=== PATIENT | male | born 1995 | race Caucasian/White ===

== ENCOUNTER 2017-09-19 16:31 | Inpatient (IN) | payer OTHER, MEDICAID ==
[2017-09-19] MEDS ORDERED: ACETAMINOPHEN 325 MG TAB PO PRN (18:45)
[2017-09-19] MEDS ORDERED: BISACODYL 10 MG SUPP PR PRN (18:47)
[2017-09-19] MEDS ORDERED: SENNOSIDES 1 TAB PO PRN (18:47)
--- NOTE | 2017-09-19 19:23 | PDOREHIP ---
Admission [facility] - Admission - 3 Day Assessment Period Admission Date/Day 1: 09/19/17 Day 2: 09/20/17 Day 3: 09/21/17 - Active Diagnoses Comorbidities and Co-existing Conditions at Admission: 73012. None of the Above - Skin Conditions Unhealed Pressure Ulcer (1 or more/Stage 1 or >)-Admission: 0. No
--- NOTE | 2017-09-19 19:23 | PDOREHIP ---
Admission [facility] - Admission - 3 Day Assessment Period Admission Date/Day 1: 09/19/17 Day 2: 09/20/17 Day 3: 09/21/17 - Active Diagnoses Comorbidities and Co-existing Conditions at Admission: 54580. None of the Above - Skin Conditions Unhealed Pressure Ulcer (1 or more/Stage 1 or >)-Admission: 0. No
--- NOTE | 2017-09-19 19:23 | PDOREHIP ---
Admission [facility] - Admission - 3 Day Assessment Period Admission Date/Day 1: 09/19/17 Day 2: 09/20/17 Day 3: 09/21/17 - Active Diagnoses Comorbidities and Co-existing Conditions at Admission: 86140. None of the Above - Skin Conditions Unhealed Pressure Ulcer (1 or more/Stage 1 or >)-Admission: 0. No
[2017-09-19] MEDS ORDERED: SENNOSIDES 17.6 MG/10 ML UDL PO PRN (19:30)
--- NOTE | 2017-09-19 21:19 | GHP ---
[f rep st] HISTORY AND PHYSICAL POST ADMISSION PHYSICIAN EVALUATION AND REHABILITATION TREATMENT PLAN DATE OF ADMISSION: 09/19/2017 DATE OF EVALUATION: 09/19/2017. TIME OF EVALUATION: 1825 hours. REFERRING FACILITY: [facility]. IMPAIRMENT GROUP: 1.9. DATE OF ONSET: 08/27/2017. REFERRING PHYSICIAN: Dr. Morris. CONSULTING PHYSICIANS: Neurology. REHABLITATION DIAGNOSIS: History of stroke, with recurrent debility status post craniectomy flap replacement. ETIOLOGIC DIAGNOSIS: Other, stroke. DATE OF SURGERY: 08/27/2017. 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 He was initially admitted to [facility]. He was eventually discharged to [facility] for rehabilitation, and subsequently was able to return home with his parents. He was readmitted to [facility] on 08/27/2017, for replacement of bone flap. His hospital stay was complicated by an epidural hematoma that required evacuation. He also had myoclonic symptoms that were thought to be a seizure initially but , subsequently, had continuous EEG monitoring with similar episodes of myoclonus in the left leg, but no epileptiform activity on EEG. He had been initially loaded on phenytoin, but he had an adverse reaction per his family of facial swelling and throat closure. He had acute hypoxic respiratory failure, not sure if it was following the phenytoin reaction. He had intubation and he was extubated on 08/31/2017. He was finally medically stabilized and appropriate for inpatient rehabilitation. STUDIES AND LABS: In the hospital: I do not have a comprehensive list. On 09/06/2017, there was a CBC, which showed anemia with a hemoglobin of 9.1 and hematocrit of 26.5. White blood cell count was normal. Platelet count was normal. INR on the day of hospital discharge was 3.6. I do not have any other labs or studies available. PRECAUTIONS: He is a fall risk. He has aspiration precautions. ACTIVE COMORBIDITIES: He has a tier 3 comorbidity of right hemiparesis. He has no other tier 1, tier 2, or tier 3 comorbidities. PAST MEDICAL HISTORY: 1. 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 2. Hypercoagulable state, per mother was diagnosed at [facility] by a nut process helper. She reports that it is a rare condition which skips generations. PAST SURGICAL HISTORY: He had a craniectomy following his seizure. PREHOSPITAL MEDICATIONS: I do not have a list. ADMISSION MEDICATIONS: 1. Acetaminophen 325 to 650 mg p.o. q.6 hours p.r.n. 2. Aspirin 81 mg p.o. daily. 3. Atorvastatin 10 mg p.o. q.h.s. 4. Cholecalciferol 2000 units p.o. daily. 5. Fluoxetine 40 mg p.o. daily. 6. Gabapentin 600 mg p.o. t.i.d. 7. Methylphenidate 5 mg p.o. b.i.d. at 0700 hours and noon. 8. Omeprazole 20 mg p.o. daily. 9. Warfarin 5 mg p.o. q. Friday, Friday, Friday, and , and 7.5 mg p.o. q. Friday and Friday. ALLERGIES: Phenytoin. FAMILY HISTORY: Noncontributory. Mother denies any history of clotting disorders that she knows of. 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 He was living with his family. Subsequently, he had a prolonged course of hospitalization, rehabilitation, and then returned home. The home is fully ADA compliant with grab-bars and a portable shower. Per family, he was able to ambulate a few steps to make transfers, for instance, from wheelchair to commode. He had some verbal communication. He is a nonsmoker and nondrinker. REVIEW OF SYSTEMS: Very limited. He complains of some pain when the nurse shows him the Bake-Hobson faces scale at a level 3, but he does not indicate where he might be hurting. Family reports that he had a bowel movement during the drive and completed the bowel movement on the commode once he arrived on the rehabilitation unit. Per family, he is quite fatigued from the drive, and as per family, he has been able to feed himself with his left upper extremity. PHYSICAL EXAMINATION: VITAL SIGNS: Blood pressure is 132/96, heart rate is 91 , respiratory rate is 18, oxygen saturation is 93% on room air. Temperature is 38.2, and a subsequent temperature is 38.0. GENERAL: This is a well-nourished , well-developed man, appears his chronologic age, cooperative, and in no distress. HEENT: Extraocular movements are intact. Pupils are equal, round, reactive to light. He is not compliant with opening his mouth for an oral exam. NECK: Supple. HEART: Regular rate and rhythm. No murmurs, rubs, or gallops. LUNGS: He has upper respiratory rhonchi with exhalation. Otherwise, lungs are clear to auscultation bilaterally without wheezes, rhonchi, or rales. ABDOMEN: Soft, nontender, nondistended, with normoactive bowel sounds. EXTREMITIES: There is no cyanosis, clubbing, or edema. Radial and dorsalis pedis pulses are 2+ bilaterally. NEUROLOGIC: He is alert. He is moderately responsive to commands. For instance, he participates in arising to seated from supine for the lung exam. He is cooperative with the nurse in gesturing at the Wilhelm-Hobson faces pain scale. However, he often is not responding to commands. He appears to be able to move his left upper extremity in all planes spontaneously. Cranial nerves 2-12 are grossly intact, though as previously, he was not cooperative with an oral exam. He has rigidity of the right upper and lower extremities. His right upper extremity is held tonically at about 90 degrees of flexion at the elbow. He has extension contractures bilaterally at the ankles. He has mild laxity/rigidity of the left upper extremity. There is no rigidity of the left lower extremity. Deep tendon reflexes are 4+ with clonus at the left patella and Achilles tendon, and are 2+ at the right patellar and Achilles tendon. Sensory exam could not be accomplished, as he was not responding. SKIN: He has a well-healed incision over the right parietal to occipital region. CURRENT LEVEL OF FUNCTION: Per the preadmission screen, regarding diet, feeding , and swallowing, he was on a dysphagia 1 diet with 1-1 supervision and it was noted that he had a delayed swallow trigger, but a strong swallow after a bolus hold of 2-3 minutes. At times, he required suctioning of secretions. Grooming , he required assistance. Bathing, he required assistance. Dressing required maximal assistance. Toileting required assistance. Bed mobility required maximal assistance of 2, but on today's exam, he needed moderate assistance of 1 to 2 to arise from seated from supine. Transfers required moderate assistance of 2 for stand, pivot, transfer. He used a wheelchair and a standing frame. For balance, he required [id number] assistance seated , or as good as standby assist for short periods of time. Endurance was fair. In a wheelchair, he was able to propel 50 feet with moderate assistance using the left lower extremity with maximal voice cues. Regarding communication, he was nonverbal. He would shake his head yes or no to answer questions. Mother reported history of expressive aphasia at baseline, but able to comprehend and follow commands. Regarding cognition, he was able to follow 1-step commands. IMPRESSION: This is a 22-year-old man, with a history of a large left hemispheric stroke, with expressive aphasia, and right hemiplegia, who returns to [facility] for replacement of a craniectomy flap. He had a complicated hospital course, including epidural hematoma that required evacuation. There was a right lower extremity myoclonus, but seizure was ruled out. In the meantime, there was adverse reaction to phenytoin. Also, during his hospital course, he had hypoxic respiratory arrest, and it is unknown whether or not there may have been a cerebral hypoxic ischemic insult. He likely has a hypercoagulable state, though records are not available, and is on warfarin, as well as aspirin. He has hypertension and is on metoprolol, and he has secondary prophylaxis for stroke with atorvastatin. He has much increased debility compared to his baseline state, in which he was much more independent in terms of mobility, and was able to communicate with his family. He is appropriate for inpatient rehabilitation, where he will benefit from physical and occupational therapy, to optimize mobility and activities of daily living, and from speech and language pathology regarding swallowing and communication/ cognition. His goal is to complete a rehabilitation stay and then return home with his family and home health care. For a safe discharge, it is anticipated that he will be able to tolerate the least restrictive diet. He will be able to follow 8-ve-dltr-step commands. He will achieve modified independence with eating and grooming. It is likely he will require standby assist and equipment for bed mobility, transfers and dressing. He will be able to propel his wheelchair with standby assist and negotiate a wheelchair ramp safely. He will likely continue to require assistance with bathing with a portable shower, and he will require assistance for household management and meal preparation. He will have therapy with physical therapy, occupational therapy, and speech and language pathology for 30-60 minutes per day per discipline, on a modified schedule of 5-7 days per week. His expected duration of stay is 14-21 days. It is anticipated that upon discharge, he will continue to benefit from home health services, including nursing, speech and language pathology, an aide occupational therapy, PT, and a stroke support group. PLAN: 1. Debility, status post surgical replacement of craniectomy flap and complicated hospital course. PT and OT to optimize mobility and ADLs. 2. Dysphagia. Per review of speech therapy note from 09/18/2017, he was cleared for regular texture and thin liquids; however, per the preadmission screen, he was on a pureed diet with no mention of liquid thickness. He will have aspiration precautions and be continued on a pureed diet with thin liquids , until assessment by Speech and Language Pathology. 3. Expressive aphasia and unclear cognitive status to be assessed further per Speech and Language Pathology. 4. Hypercoagulable state. Would like to see the records from Hematology at [facility] to understand the diagnosis better. We will continue warfarin. He had an elevated INR this morning. We will repeat INR tomorrow morning, and will have further warfarin management per the pharmacy. Continue aspirin. 5. Hypertension. Continue metoprolol 25 mg b.i.d. 6. Anemia in the hospital, and the patient on warfarin and aspirin, will check a CBC in the morning. 7. History of impaired alertness, likely due to CVA. Continue methylphenidate. 8. Spasticity. Continue gabapentin. 9. Question of seizure in the hospital. Per hospital notes, it was recommended that he continue levetiracetam. However, his mother refused to allow that, and insisted on only gabapentin as an anticonvulsant, given that he had continuous EEG monitoring with episodes of myoclonus on the right lower extremity, but no epileptiform EEG activity. I am comfortable with not continuing an anticonvulsant and with not having seizure precautions. He will be observed, and if his symptoms are distinctly different than what has been reported out of the hospital, consider seizure precautions and consider further discussion with the mother regarding anticonvulsant medication. 10. Obesity, will have a dietitian consult to optimize his nutrition and stabilize his weight. 11. Followup. I have no information regarding what followup he should have with the surgical service or Neurology. This will need to be determined subsequently during his stay at inpatient rehabilitation. /[id number]/MODL MTDD
[2017-09-19] MEDS: GABAPENTIN 250 MG/5 ML 30 ML BOTTLE PO SCH (22:04)
[2017-09-19] MEDS: METOPROLOL TARTRATE 25 MG TAB PO SCH (22:04)
[2017-09-19] MEDS: ATORVASTATIN CALCIUM 10 MG TAB PO SCH (22:04)
[2017-09-20] MEDS: LANSOPRAZOLE SUSP 30MG/10ML UDSYR (Adult) PO SCH (10:44)
[2017-09-20] MEDS: METOPROLOL TARTRATE 25 MG TAB PO SCH ×2 (10:45→22:35)
[2017-09-20] MEDS: CHOLECALCIFEROL VIT D3 2,000 UNITS TAB/CAP PO SCH (10:45)
[2017-09-20] MEDS: FLUoxetine 20 MG CAP PO SCH (10:45)
[2017-09-20] MEDS: ASPIRIN 81 MG CHEWABLE TAB PO SCH (10:46)
[2017-09-20] MEDS: GABAPENTIN 250 MG/5 ML 30 ML BOTTLE PO SCH ×3 (10:46→22:35)
[2017-09-20 12:16] LABS: PLATELET COUNT 513 10^3/uL (150-400)
[2017-09-20 12:24] LABS: INR 2.19 (0.83-1.16); PROTIME(PATIENT) 24.5 SEC (12.0-15.0)
--- NOTE | 2017-09-20 14:45 | SOAPPROG ---
SOAP Progress Note Assessment/Plan: Assessment: * debility secondary to large left MCA and DAMIEN CVA * Receiving therapy * low-grade fever/mild tachycardia * Suspicious for pneumonia with abnormal lung exam * CBC does not show leukocytosis but platelets are up * Awaiting chest x-ray * He is most likely at high risk for aspiration pneumonia * dysphagia * expressive aphasia * hypercoagulable state * Continue warfarin. INR therapeutic * hypertension * anemia * Does have microcytosis * Will check iron studies * spasticity * seizure versus myoclonus * On gabapentin *? GI prophylaxis * Most likely Prevacid is carry over from ICU * Consider weaning off Subjective: Little bit more lethargic this morning. Did have low-grade fever and heart rate is up a little bit Objective: Vital Signs Temp Pulse Resp BP Pulse Ox 38.1 C 101 H 20 147/105 H 92 09/20/17 10:42 09/20/17 10:45 09/20/17 10:42 09/20/17 10:45 09/20/17 10:42 Laboratory Results 09/20/17 10:05 09/20/17 10:05 09/19/17 09/20/17 09/21/17 05:59 05:59 05:59 Intake Total 100 118 Balance 100 118 PT 24.5 SEC (12.0-15.0) H 09/20/17 10:05 INR 2.19 (0.83-1.16) H 09/20/17 10:05 Physical Exam - Physical Exam General Appearance: WD/WN Respiratory: other (crackles especially in the right upper lobe versus coarse breath sounds), No respiratory distress Cardiac/Chest: regular rate, rhythm, No edema Abdomen: normal bowel sounds, non-tender, soft Neuro/Psych: alert, aphasia, motor weakness ICD10 Worksheet Patient Problems: Problems Problem Status Onset stroke Acute
[2017-09-20] MEDS ORDERED: WARFARIN SODIUM 5 MG TAB PO SCH (16:00)
[2017-09-20] MEDS ORDERED: NS BOLUS 500 ML (Wide open) IV ONE (20:30)
[2017-09-20] MEDS: ATORVASTATIN CALCIUM 10 MG TAB PO SCH (21:42)
[2017-09-20] MEDS: D5W 1/2 NS W/ 20 KCl/L 1,000 ML IV SCH (21:53)
[2017-09-20] MEDS ORDERED: HYDROmorphONE/DILAUDID 2 MG/ML INJ IVP ONE (22:30)
[2017-09-20] MEDS ORDERED: HYDROmorphONE/DILAUDID 2 MG/ML INJ ONE (22:42)
[2017-09-20] MEDS: NYSTATIN SUSP 500000 UNIT/5 ML UDCUP PO SCH (22:43)
[2017-09-20] MEDS ORDERED: ACETAMINOPHEN 650 MG SUPP PR PRN (23:48)
[2017-09-21] MEDS: HYDROmorphONE/DILAUDID 2 MG/ML INJ IVP PRN ×2 (03:21→12:03)
[2017-09-21] MEDS: D5W 1/2 NS W/ 20 KCl/L 1,000 ML IV SCH (09:11)
[2017-09-21] MEDS: NYSTATIN SUSP 500000 UNIT/5 ML UDCUP PO SCH ×2 (09:11→12:03)
[2017-09-21] MEDS: LANSOPRAZOLE SUSP 30MG/10ML UDSYR (Adult) PO SCH (09:12)
[2017-09-21] MEDS: FLUoxetine 20 MG CAP PO SCH (09:12)
[2017-09-21] MEDS: METOPROLOL TARTRATE 25 MG TAB PO SCH (09:12)
[2017-09-21] MEDS: CHOLECALCIFEROL VIT D3 2,000 UNITS TAB/CAP PO SCH (09:12)
[2017-09-21] MEDS: ASPIRIN 81 MG CHEWABLE TAB PO SCH (09:12)
[2017-09-21] MEDS: GABAPENTIN 250 MG/5 ML 30 ML BOTTLE PO SCH (09:12)
[2017-09-21 10:52] VITALS: RESP 18
--- NOTE | 2017-09-21 11:04 | SOAPPROG ---
SOAP Progress Note Assessment/Plan: Assessment: 22-year-old who sustained a large left stroke in April requiring bone flap removal. Bone flap was replaced in August but hospital course was complicated by epidural hematoma and anaphylactic reaction to Dilantin requiring intubation. He was admitted to rehab on September 19 and has been having low-grade fevers since with some decrease in mental status * low-grade fever/mild tachycardia * Chest x-ray is negative * CBC does not show leukocytosis but platelets are up * Discussed the case with Infectious Disease. They feel that MRI is the best initial test to look for fluid collections or possible osteomyelitis as a result of recent surgery. LP would also be a consideration. * We will transfer to [facility] to get the above done and for infectious disease consultation * dysphagia * Due to decreased mental status he is now NPO per speech * Will probably need NG tube a Dobhoff for medications * expressive aphasia * hypercoagulable state * Hold warfarin * Will need bridging at hospital * hypertension * anemia * Does have element of iron deficiency * spasticity * seizure versus myoclonus * On gabapentin *? GI prophylaxis * Most likely Prevacid is carry over from ICU * Consider weaning off 09/21/17 11:01 Subjective: Maybe a little bit more awake this morning. Still with low-grade fevers Objective: Vital Signs Temp Pulse Resp BP Pulse Ox 38.1 C 127 H 18 156/102 H 90 L 09/21/17 10:51 09/21/17 10:51 09/21/17 10:51 09/21/17 10:51 09/21/17 10:51 Laboratory Results 09/20/17 10:05 09/20/17 10:05 09/20/17 09/21/17 09/22/17 05:59 05:59 05:59 Intake Total 100 1303 Balance 100 1303 PT 24.5 SEC (12.0-15.0) H 09/20/17 10:05 INR 2.19 (0.83-1.16) H 09/20/17 10:05 Physical Exam - Physical Exam General Appearance: no apparent distress EENT: normal ENT inspection Respiratory: other (Coarse breath sounds bilaterally) Cardiac/Chest: regular rate, rhythm, No edema Abdomen: normal bowel sounds, non-tender, soft Skin: normal color Neuro/Psych: other (Awake. Does respond to commands. Nonverbal) ICD10 Worksheet Patient Problems: Problems Problem Status Onset stroke Acute
[2017-09-21 12:27] VITALS: BP 127/91; PULSE 102; TEMP 101.2; O2SAT 92
[2017-09-23] MEDS ORDERED: WARFARIN SODIUM 7.5 MG TAB PO SCH (16:00)
== END 2017-09-21 12:30 | disposition short-term general hospital (02) | DRG 949 ==
LOC: BREH 17:30
PROVIDERS: ADMIT Internal Medicine; ATTEND Internal Medicine
PROC: F0636ZZ Communicative/Cognitive Integration Skills Treatment of Neurological System - Whole Body (ICD-10-PCS; principal; 2017-09-19)
PROC: F08Z7ZZ Vocational Activities and Functional Community or Work Reintegration Skills Treatment (ICD-10-PCS; principal; 2017-09-19)
PROC: F07M3ZZ Motor Function Treatment of Musculoskeletal System - Whole Body (ICD-10-PCS; principal; 2017-09-19)
CPT/HCPCS: 92610-GN; 97167-GO; 97535-GO; J1170

== ENCOUNTER 2017-09-21 10:56 | Inpatient (IN) | payer OTHER, MEDICAID ==
[2017-09-21 13:18] VITALS: TEMP 101
[2017-09-21] MEDS ORDERED: GADOBUTROL 10 ML VIAL IVP ONE (13:37)
[2017-09-21] MEDS ORDERED: ACETAMINOPHEN 650 MG SUPP PR PRN (13:46)
[2017-09-21] MEDS ORDERED: ONDANSETRON 4 MG/2 ML VIAL IVP PRN (13:46)
[2017-09-21] MEDS ORDERED: LORazepam 2 MG/ML INJ IVP PRN (13:46)
[2017-09-21] MEDS ORDERED: HYDROmorphONE/DILAUDID 1 MG/ML INJ IVP PRN (13:46)
[2017-09-21] MEDS ORDERED: HYDROmorphone HCL/NS/PF 0.4 MG/2 ML SYR IVP PRN (13:53)
[2017-09-21] MEDS ORDERED: NS 1,000 ML IV SCH (14:00)
--- NOTE | 2017-09-21 14:56 | GHP ---
[f rep st] HISTORY AND PHYSICAL DATE OF ADMISSION: 09/21/2017 CHIEF COMPLAINT: Fever and somnolence. 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 He had subsequent expressive aphasia and right-sided hemiplegia. He was initially admitted and treated at [facility] for his stroke. This was thought to be due to a hypercoagulable state and he was seen by marketing production coordinator at [facility], where he went for rehab. However, the details of this are unclear. He has been maintained on Coumadin and aspirin with a therapeutic INR yesterday at 2.19. He was able to go home with his parents after a course at the [facility] for rehab. He was then readmitted to [facility] August 27, where he had a bone flap replaced. This was complicated by an epidural hematoma which required evacuation. Prior to the surgical evacuation of the hematoma, he apparently did have some seizure activity and was started on Dilantin. Postoperatively, he continued to have some myoclonic jerking symptoms, but underwent continuous EEG monitoring and no abnormal epileptiform signals were detected. He, unfortunately, developed anaphylactic-type symptoms from the phenytoin, which led to acute respiratory failure and a code blue event , during which he was intubated. He was extubated 4 days later. His parents report that since his recent bone flap surgery, he has not recovered. He was, at some point, able to take a pureed diet with thin liquids. However, since he was transferred to rehab at [facility] 2 days ago, he has been n.p.o. They have noted increasing somnolence. His parents stated he started having fevers 2 weeks ago, but when fevers were noted at the rehab facility he was transferred to [facility] for direct admission and further evaluation. There have reportedly been no jerking movements consistent with seizure activity and he is currently not on antiepileptics. Prior to his somnolent state, he denied any headaches, neck pain, chest pain, shortness of breath, or abdominal symptoms. His last bowel movement was 2 days ago. He has had no diarrhea. There have been no reports of dysuria. Upon my exam, the patient is somnolent and only responsive to deep sternal rub. He is admitted to the hospital for further evaluation of his fever and somnolence. History is obtained from chart review and lengthy conversation with his parents as the patient is somnolent and unable to answer questions. PAST MEDICAL HISTORY: 1. History of large left hemispheric CVA involving the MCA and DAMIEN of April 2017 , requiring craniectomy secondary to edema. 2. Hypertension, managed on metoprolol. 3. Dysphagia, currently n.p.o. for the past 2 days. 4. Hypercoagulable state of unknown etiology. 5. Chronic anticoagulation with a therapeutic INR. 6. 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 PAST SURGICAL HISTORY: 1. Left craniectomy April of 2017 at [facility]. 2. Bone flap replacement August 27, 2017, at [facility]. MEDICATIONS: Please see [employer] for complete updated outpatient medication list. ALLERGIES: Phenytoin. FAMILY HISTORY: Negative for hypercoagulable disorders. SOCIAL HISTORY: The patient previously worked in the [employer] business and was living with his parents. His parents deny that he is a smoker or a drinker. There is no history of illicit drug use. REVIEW OF SYSTEMS: A 10-point review of systems was performed and is negative except as per HPI. However, review of systems is generally limited given the patient's somnolent status and inability to interact. OBJECTIVE: VITAL SIGNS: Temperature is 38.3, blood pressure 138/85, heart rate 92, respiratory rate 18, he is 98% on 3 L of oxygen by nasal cannula. GENERAL: The patient is somnolent with a Karena Coma Scale of 7. HEENT: His head reveals a well-healed craniectomy incision without erythema or obvious deformity. Pupils: His right pupil has a lateral upper deviated gaze. His pupils are 3 mm and minimally reactive to light. Oropharynx reveals a white thickening of the tongue with significant posterior oropharynx secretions that he seems unable to manage. Passive flexion of his neck reveals some rigidity. HEART: Regular rate and rhythm without murmur. LUNGS: Reveal decreased air movement. ABDOMEN: Soft, obese, nondistended, nontender, with normoactive bowel tones. EXTREMITIES: Lower extremities are without cyanosis, clubbing, or edema. His right upper extremity has a chronic flexure of the hand, consistent with his baseline spasticity. I am unable to test strength given his somnolence. NEUROLOGIC: As above, there is a right pupil deviation with a lateral upper gaze. Medora Coma Scale of 7. LABORATORY DATA: CBC, PT/INR, complete metabolic panel, procalcitonin, lactic acid, TSH, urinalysis, urine culture and blood cultures are all sent and currently pending. MRI of the brain and a chest x-ray are ordered and also pending. ASSESSMENT AND PLAN: The patient is a 22-year-old male with a history of a large left hemispheric stroke and subsequent expressive aphasia and right hemiplegia, who is status post craniectomy with bone flap replacement in August of 2017, presents to the hospital from a rehab facility with fever and somnolence. 1. Acute encephalopathy. A central nervous system source (infection or seizure ) is at the top of the differential given his recent bone flap replacement and neurologic changes, along with fever. MRI with and without contrast is ordered to evaluate for infection, edema or intracranial abnormalities. Infectious Disease is consulted. Labs are sent as above. He may need a lumbar puncture and this would require reversal of his INR. I will discuss this with Infectious Disease. I do not see he has been given any medications recently that would contribute to his somnolence. Neurology consult is requested. Will involve neurosurgery once MRI results available. 2. Fever. As above, this may be central versus an infectious process. We will start with a CBC, chem panel, lactic acid, procalcitonin, chest x-ray, urinalysis, respiratory pathogen panel and MRI as above. Likely to proceed with lumbar puncture if no source of fever found on MRI. 3. History of large left middle cerebral artery and anterior cerebral artery cerebrovascular accident. Thought secondary to a hypercoagulable state. Patient has been on aspirin, Coumadin, and statin. I will hold his Coumadin for now until it is determined if he will undergo lumbar puncture. If that is the case, INR will need to be reversed. We will aim to continue his aspirin, statin. Physical therapy and occupational therapy consults are requested. 4. Spasticity secondary to his cerebrovascular accident. We will continue his gabapentin. 5. Dysphagia. The patient is not safe for p.o. intake and will be made n.p.o. at this time. Speech consult is requested. He has been 2 days without nutrition. We will need to consider placement of a nasogastric tube for medication administration and possibly tube feeds if he is not able to take p.o. in the next couple of days. 6. History of hypertension. He is normotensive on arrival. Per previous records, it sounds like he has been managed on metoprolol, but I do not see that on his active medication list. 7. Deep venous thrombosis prophylaxis. We will place sequential compression devices for now. He is currently anticoagulated, though we may need to consider reversal if we pursue lumbar puncture. 8. Code status. Patient is full code. 9. Disposition. Patient is admitted to inpatient status. I anticipate he will require greater than 48 hours hospitalization for ongoing evaluation of his fevers and acute encephalopathy. /[id number]/MODL MTDD
[2017-09-21 15:00] LABS: PLATELET COUNT 473 10^3/uL (150-400)
[2017-09-21] MEDS ORDERED: BISACODYL 10 MG SUPP PR PRN (15:07)
[2017-09-21 15:08] LABS: INR 2.36 (0.83-1.16)
[2017-09-21] MEDS ORDERED: METOPROLOL TARTRATE 5 MG/5 ML INJ IVP PRN (16:05)
[2017-09-21] MEDS ORDERED: levETIRAcetam 1,000 MG in NS 100 ML IV ONE (16:21)
--- NOTE | 2017-09-21 16:24 | PDMN ---
Medical Necessity Medical necessity: C/M review: Patient meets [place] criteria [place] [facility] [place] Sepsis and Other Febrile Illness, without Focal Infection; Acute and persistent encephalopathy, fevers of unclear etiology, 38.3 T max since arrival to SDU, INR 2.36 requiring IV Vitamin K x 1, planned 09/22/2017 lumbar puncture, Infectious disease consult, Neurology consult, ongoing NPO, IV fluids, acute inpt PT/OT/ST in SDU, comorbid [facility] Acute Inpt Rehab admission 09/19/2017-2016, hx large hemispheric CVA involving left MCA / DAMIEN, post CVA spasticity, dysphagia, expressive aphasia, hypercoagulable state, hypertension. MD anticipates > 2 MN LOS for eval and TX of of above.
--- NOTE | 2017-09-21 16:24 | PDMN ---
Medical Necessity Medical necessity: C/M review: Patient [place] criteria [place] [facility] [place] Sepsis and Other Febrile Illness, without Focal Infection; Acute and persistent encephalopathy, fevers of unclear etiology, 38.3 T max since arrival to SDU, INR 2.36 requiring IV Vitamin K x 1, planned 09/22/2017 lumbar puncture, Infectious disease consult, Neurology consult, ongoing NPO, IV fluids, acute inpt PT/OT/ST in SDU, comorbid [facility] Acute Inpt Rehab admission 09/19/2017-2016, hx large hemispheric CVA involving left MCA / DAMIEN, post CVA spasticity, dysphagia, expressive aphasia, hypercoagulable state, hypertension. MD anticipates > 2 MN LOS for eval and TX of of above.
--- NOTE | 2017-09-21 16:24 | PDMN ---
Medical Necessity Medical necessity: C/M review: Patient meets INPT criteria under [facility] M-160 Sepsis and Other Febrile Illness, without Focal Infection; Acute and persistent encephalopathy, fevers of unclear etiology, 38.3 T max since arrival to SDU, INR 2.36 requiring IV Vitamin K x 1, planned 09/22/2017 lumbar puncture, Infectious disease consult, Neurology consult, ongoing NPO, IV fluids, acute inpt PT/OT/ST in SDU, comorbid [facility] Acute Inpt Rehab admission 09/19/2017-2016, hx large hemispheric CVA involving left MCA / DAMIEN, post CVA spasticity, dysphagia, expressive aphasia, hypercoagulable state, hypertension. MD anticipates > 2 MN LOS for eval and TX of of above.
--- NOTE | 2017-09-21 16:26 | GCON ---
[f rep st] CONSULTATION INSURANCE INVESTIGATOR CONSULTATION REASON FOR ADMISSION: Acute encephalopathy. HISTORY OF PRESENT ILLNESS: The patient is a 22-year-old white male with extensive past medical hist ory, including a large left hemispheric stroke involving MCA and DAMIEN in April of 2017. This required a craniectomy. He also has a history of hypertension, dysphagia, spasticity, and hypercoagulable sta te. He was admitted over to rehab when began having altered mental status and increased somnolence. Currently, the patient is unable to provide any history. All history is gleaned from the medical re cord. He apparently was not complaining of anything prior to his somnolence. PAST MEDICAL HISTORY: Significant for a large left hemispheric stroke, hypertension, hypercoagulable state of unknown etiology, spasticity, dysphagia. ALLERGIES: Phenytoin. PAST SURGICAL HISTORY: He has had a craniectomy and a bone flap replacement. SOCIAL HISTORY: No history of tobacco use. No history of alcohol use. Previously was living with nupur alonzo, involved in the [employer] business. PHYSICAL EXAM: VITAL SIGNS: Blood pressure is 138/85, pulse 92, respiration 18, temperature 38.3, o xygen saturation 98% on 3 L. GENERAL: He is a well-developed, well-nourished, 22-year-old white mal e, who is somnolent, but appears to be resting comfortably. HEENT: Eyes are PERRLA, EOMI. Throat i s clear. NECK: Supple. There is no cervical adenopathy. HEART: Regular rate and rhythm without m urmurs, rubs, gallops. LUNGS: Clear to auscultation. No wheeze or rhonchi. ABDOMEN: Soft, nonten stephan. Bowel sounds are present. EXTREMITIES: No clubbing, cyanosis, or edema. LABORATORIES: White count 6.9, hemoglobin 10, hematocrit 32, platelet count is 473. INR is 2.36. U rinalysis pH is 5, specific gravity 1.024. 50 to 182 RBCs, otherwise, negative. Chest x-ray shows a hint of a retrocardiac infiltrate on the left. Brain MRI is currently pending. IMPRESSION: 1. Acute encephalopathy, the etiology of which is unclear at this time. MRI results are currently p ending. Must take into consideration possible pneumonia. 2. Fevers. Again, etiology which is unclear. 3. History of a large stroke. 4. Hypercoagulable state. 5. Dysphagia. 6. Hypertension. RECOMMENDATIONS: 1. Agree with infectious disease consult. 2. Consider lumbar puncture. 3. Await for MRI results. 4. Procalcitonin is pending. 5. Continue current anticoagulation. 6. PT and OT. /[id number]/MODL
[2017-09-21] MEDS: PHYTONADIONE 5 MG in NS 50 ML IV ONE ×2 (16:46→18:38)
--- NOTE | 2017-09-21 17:25 | ASMTCMCOM ---
CM Note CM Note Notes: 22 year old male with a hx of a large stroke in april requiring a crani, HTN, Dysphasia, spasticity, hypercoagulable state, bone flap replacement. He came from [facility] in-pT rehab due to increased somnolence. Hospitalist would like to transfer him to [facility]. Records copied and sent w/[facility]. Date Signed: 09/21/2017 05:25 PM Electronically Signed By:Oralia Hewitt LCSW
--- NOTE | 2017-09-21 17:25 | ASMTCMCOM ---
CM Note CM Note Notes: 22 year old male with a hx of a large stroke in april requiring a crani, HTN, Dysphasia, spasticity, hypercoagulable state, bone flap replacement. He came from [facility] in-pT rehab due to increased somnolence. Hospitalist would like to transfer him to [facility]. Records copied and sent w/[facility]. Date Signed: 09/21/2017 05:25 PM Electronically Signed By:Oralia Hewitt LCSW
--- NOTE | 2017-09-21 17:25 | ASMTCMCOM ---
CM Note CM Note Notes: 22 year old male with a hx of a large stroke in april requiring a crani, HTN, Dysphasia, spasticity, hypercoagulable state, bone flap replacement. He came from [facility] in-pT rehab due to increased somnolence. Hospitalist would like to transfer him to [facility]. Records copied and sent w/[facility]. Date Signed: 09/21/2017 05:25 PM Electronically Signed By:Oralia Hewitt LCSW
[2017-09-21 18:17] VITALS: BP 151/95; PULSE 127; RESP 16; O2SAT 98
--- NOTE | 2017-09-21 18:52 | GDS ---
[f rep st] DISCHARGE SUMMARY DISCHARGE DIAGNOSES: 1. Acute encephalopathy, possibly secondary to seizure versus infection. 2. Fever of unclear etiology. 3. 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 4. Chronic anticoagulation, with an INR of 2.36 on Coumadin. 5. 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 6. Dysphagia. 7. History of hypertension, managed on metoprolol. IMAGING STUDIES AND PROCEDURES: 1. MRI performed on admission revealed a large area cephalocaudal malacia developing in the left omrhtaci-soopaevl-btpowtyac region associated with compensatory enlargement of the left lateral ventricle. The overlying dura was smoothly thickened and was beneath a large bone flap, which remains in anatomic alignment. There was some subtle curvilinear enhancement within the area of encephalomalacia, representing a remnant of patent vascular structures within the area of brain. There was no evidence of brain parenchymal, subdural, or epidural abscess. There was no evidence for scalp abscess. The bone flare has increased signal throughout, but no enhancement. There was no change in ventricular size since September 10. There was no evidence for abnormal subependymal enhancement. The paranasal and mastoid sinuses were free of fluid. Diffusion images of the brain were normal. Overall, no abscess or infectious source for fever was identified. 2. A portable chest x-ray showed some possible vascular crowding in the left lung retrocardiac base, though no obvious infiltrate or consolidation. HISTORY OF PRESENT ILLNESS: Please see the dictated history and physical dated September 21, 2017. In brief, the patient is a 22-year-old male with history of left MCA and DAMIEN strokes, which occurred in April of 2017, requiring craniectomy. He was then re-admitted to the hospital in early August for bone flap replacement, which was complicated by an epidural hematoma and seizure activity. He had been treated with Dilantin and Keppra, but the Dilantin was discontinued due to a hypersensitivity reaction, possibly anaphylaxis versus DRESS syndrome. He required intubation at that time with a code blue event and was extubated 4 days later. He then was transferred to rehab. Two days into his rehab course in [place], he was sent to the hospital for somnolence and fever, for further evaluation. HOSPITAL COURSE: The patient was initially admitted to medical-surgical floor. Upon my evaluation, he was unresponsive with a Huntington coma score of 7 and was thus transferred to the ICU. He had a right eye superolateral gaze deviation, which was concerning for an absence seizure. His mentation slightly improved after transfer to the ICU, but he continued to have waxing and waning symptoms of detachment, with right eye lateral gaze deviation. His infection workup revealed a normal white blood cell count of 7. Procalcitonin was negative at 0.05. Lactic acid was 0.8. Urinalysis was negative. Chest x-ray was not convincing for pneumonia. As above, his MRI did not suggest a [employer] source of infection. Lumbar puncture was considered. However, it is noted the patient is very high risk to reverse his anticoagulation given his history of hypercoagulable state with a devastating stroke. I discussed the case with Dr. Sal Mancera from Neurosurgery and with Dr. Benavidez from Neurology, who were both concerned for possible seizure activity and suggested the patient needs EEG monitoring, which is unavailable at our hospital. At this point, we will defer the lumbar puncture until he has seizure ruled out as a source of his unresponsive episodes. He will be transferred to the [facility] for EEG monitoring. I urged the family to consider transfer back to [facility], where he has been cared for previously. However, they refused to go back to [facility]. If his EEG is negative for seizure, then he will likely warrant lumbar puncture if fevers and somnolence persist. He was loaded with 1 g of IV Keppra at 1645 hours. No Dilantin is recommended given a history of severe hypersensitivity reaction (? DRESS vs anaphylaxis) requiring intubation. He has, otherwise, been kept n.p.o. Given his somnolent state, I do not feel he is safe for p.o. intake at this time. He will need speech and swallow evaluations. At the time of transfer, his vital signs are stable. I discussed the case with Dr. Chaidez, the medical ICU geodesy teacher at the [facility], who accepts the patient in transfer. DISPOSITION: The patient is discharged to the [facility] medical ICU by advanced life support in stable condition. A total of 90 minutes was spent providing critical care on admission, reviewing chart and discussing case with specialty care. Another 25 minutes were spent discussing goals of care and transfer of care to a facility capable of EEG monitoring. Parents agreed to transfer. /[id number]/MODL MTDD
--- NOTE | 2017-09-21 18:52 | GDS ---
[f rep st] DISCHARGE SUMMARY DISCHARGE DIAGNOSES: 1. Acute encephalopathy, possibly secondary to seizure versus infection. 2. Fever of unclear etiology. 3. 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 4. Chronic anticoagulation, with an INR of 2.36 on Coumadin. 5. 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 6. Dysphagia. 7. History of hypertension, managed on metoprolol. IMAGING STUDIES AND PROCEDURES: 1. MRI performed on admission revealed a large area cephalocaudal malacia developing in the left swolkamh-brbdcffw-qjgzqqjnh region associated with compensatory enlargement of the left lateral ventricle. The overlying dura was smoothly thickened and was beneath a large bone flap, which remains in anatomic alignment. There was some subtle curvilinear enhancement within the area of encephalomalacia, representing a remnant of patent vascular structures within the area of brain. There was no evidence of brain parenchymal, subdural, or epidural abscess. There was no evidence for scalp abscess. The bone flare has increased signal throughout, but no enhancement. There was no change in ventricular size since September 10. There was no evidence for abnormal subependymal enhancement. The paranasal and mastoid sinuses were free of fluid. Diffusion images of the brain were normal. Overall, no abscess or infectious source for fever was identified. 2. A portable chest x-ray showed some possible vascular crowding in the left lung retrocardiac base, though no obvious infiltrate or consolidation. HISTORY OF PRESENT ILLNESS: Please see the dictated history and physical dated September 21, 2017. In brief, the patient is a 22-year-old male with history of left MCA and DAMIEN strokes, which occurred in April of 2017, requiring craniectomy. He was then re-admitted to the hospital in early August for bone flap replacement, which was complicated by an epidural hematoma and seizure activity. He had been treated with Dilantin and Keppra, but the Dilantin was discontinued due to a hypersensitivity reaction, possibly anaphylaxis versus DRESS syndrome. He required intubation at that time with a code blue event and was extubated 4 days later. He then was transferred to rehab. Two days into his rehab course in [place], he was sent to the hospital for somnolence and fever, for further evaluation. HOSPITAL COURSE: The patient was initially admitted to medical-surgical floor. Upon my evaluation, he was unresponsive with a [place] coma score of 7 and was thus transferred to the ICU. He had a right eye superolateral gaze deviation, which was concerning for an absence seizure. His mentation slightly improved after transfer to the ICU, but he continued to have waxing and waning symptoms of detachment, with right eye lateral gaze deviation. His infection workup revealed a normal white blood cell count of 7. Procalcitonin was negative at 0.05. Lactic acid was 0.8. Urinalysis was negative. Chest x-ray was not convincing for pneumonia. As above, his MRI did not suggest a EXECUTIVE VICE PRESIDENT AND CHIEF FINANCIAL OFFICER source of infection. Lumbar puncture was considered. However, it is noted the patient is very high risk to reverse his anticoagulation given his history of hypercoagulable state with a devastating stroke. I discussed the case with Dr. Sal Mancera from Neurosurgery and with Dr. Benavidez from Neurology, who were both concerned for possible seizure activity and suggested the patient needs EEG monitoring, which is unavailable at our hospital. At this point, we will defer the lumbar puncture until he has seizure ruled out as a source of his unresponsive episodes. He will be transferred to the [facility] for EEG monitoring. I urged the family to consider transfer back to [facility], where he has been cared for previously. However, they refused to go back to [facility]. If his EEG is negative for seizure, then he will likely warrant lumbar puncture if fevers and somnolence persist. He was loaded with 1 g of IV Keppra at 1645 hours. No Dilantin is recommended given a history of severe hypersensitivity reaction (? DRESS vs anaphylaxis) requiring intubation. He has, otherwise, been kept n.p.o. Given his somnolent state, I do not feel he is safe for p.o. intake at this time. He will need speech and swallow evaluations. At the time of transfer, his vital signs are stable. I discussed the case with Dr. Chaidez, the medical ICU windows systems architect at the [facility], who accepts the patient in transfer. DISPOSITION: The patient is discharged to the [facility] medical ICU by advanced life support in stable condition. A total of 90 minutes was spent providing critical care on admission, reviewing chart and discussing case with specialty care. Another 25 minutes were spent discussing goals of care and transfer of care to a facility capable of EEG monitoring. Parents agreed to transfer. /[id number]/MODL MTDD
--- NOTE | 2017-09-21 18:52 | GDS ---
[f rep st] DISCHARGE SUMMARY DISCHARGE DIAGNOSES: 1. Acute encephalopathy, possibly secondary to seizure versus infection. 2. Fever of unclear etiology. 3. 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 4. Chronic anticoagulation, with an INR of 2.36 on Coumadin. 5. 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 6. Dysphagia. 7. History of hypertension, managed on metoprolol. IMAGING STUDIES AND PROCEDURES: 1. MRI performed on admission revealed a large area cephalocaudal malacia developing in the left obpdzmbq-yipfbbuy-lhhpbgljz region associated with compensatory enlargement of the left lateral ventricle. The overlying dura was smoothly thickened and was beneath a large bone flap, which remains in anatomic alignment. There was some subtle curvilinear enhancement within the area of encephalomalacia, representing a remnant of patent vascular structures within the area of brain. There was no evidence of brain parenchymal, subdural, or epidural abscess. There was no evidence for scalp abscess. The bone flare has increased signal throughout, but no enhancement. There was no change in ventricular size since September 10. There was no evidence for abnormal subependymal enhancement. The paranasal and mastoid sinuses were free of fluid. Diffusion images of the brain were normal. Overall, no abscess or infectious source for fever was identified. 2. A portable chest x-ray showed some possible vascular crowding in the left lung retrocardiac base, though no obvious infiltrate or consolidation. HISTORY OF PRESENT ILLNESS: Please see the dictated history and physical dated September 21, 2017. In brief, the patient is a 22-year-old male with history of left MCA and DAMIEN strokes, which occurred in April of 2017, requiring craniectomy. He was then re-admitted to the hospital in early August for bone flap replacement, which was complicated by an epidural hematoma and seizure activity. He had been treated with Dilantin and Keppra, but the Dilantin was discontinued due to a hypersensitivity reaction, possibly anaphylaxis versus DRESS syndrome. He required intubation at that time with a code blue event and was extubated 4 days later. He then was transferred to rehab. Two days into his rehab course in [place], he was sent to the hospital for somnolence and fever, for further evaluation. HOSPITAL COURSE: The patient was initially admitted to medical-surgical floor. Upon my evaluation, he was unresponsive with a [place] coma score of 7 and was thus transferred to the ICU. He had a right eye superolateral gaze deviation, which was concerning for an absence seizure. His mentation slightly improved after transfer to the ICU, but he continued to have waxing and waning symptoms of detachment, with right eye lateral gaze deviation. His infection workup revealed a normal white blood cell count of 7. Procalcitonin was negative at 0.05. Lactic acid was 0.8. Urinalysis was negative. Chest x-ray was not convincing for pneumonia. As above, his MRI did not suggest a STORM CHASER source of infection. Lumbar puncture was considered. However, it is noted the patient is very high risk to reverse his anticoagulation given his history of hypercoagulable state with a devastating stroke. I discussed the case with Dr. Sal Mancera from Neurosurgery and with Dr. Benavidez from Neurology, who were both concerned for possible seizure activity and suggested the patient needs EEG monitoring, which is unavailable at our hospital. At this point, we will defer the lumbar puncture until he has seizure ruled out as a source of his unresponsive episodes. He will be transferred to the [facility] for EEG monitoring. I urged the family to consider transfer back to [facility], where he has been cared for previously. However, they refused to go back to [facility]. If his EEG is negative for seizure, then he will likely warrant lumbar puncture if fevers and somnolence persist. He was loaded with 1 g of IV Keppra at 1645 hours. No Dilantin is recommended given a history of severe hypersensitivity reaction (? DRESS vs anaphylaxis) requiring intubation. He has, otherwise, been kept n.p.o. Given his somnolent state, I do not feel he is safe for p.o. intake at this time. He will need speech and swallow evaluations. At the time of transfer, his vital signs are stable. I discussed the case with Dr. Chaidez, the medical ICU towerman at the [facility], who accepts the patient in transfer. DISPOSITION: The patient is discharged to the [facility] medical ICU by advanced life support in stable condition. A total of 90 minutes was spent providing critical care on admission, reviewing chart and discussing case with specialty care. Another 25 minutes were spent discussing goals of care and transfer of care to a facility capable of EEG monitoring. Parents agreed to transfer. /[id number]/MODL MTDD
--- NOTE | 2017-09-21 21:13 | GCON ---
[f rep st] CONSULTATION INFECTIOUS DISEASE CONSULTATION DATE OF CONSULTATION: 09/21/2017 REFERRING PHYSICIAN: Nidia Fraire MD REASON FOR CONSULTATION: Fever and altered mental status. HISTORY OF PRESENT ILLNESS: The patient is a 22-year-old male, with a past medical history of large left-sided stroke in April of 2017, felt to be secondary to hypercoagulable state, who I am asked to [facility] in consultation for fever and lethargy. The history is obtained from the patient's parents, as he is unable to provide any history today. Additional history is obtained from the medical record. The patient was hospitalized in April of this year with a large left-sided stroke, which was felt to b e due to hypercoagulable state. The parents described the patient having a clot in his neck, which r equired angioplasty. He also was noted to have DVT in the lower extremity at that time. The parents described that his clot was felt to have originated in his lower extremity and passed through his he art, although they do not describe any pzgmn-hd-affe shunt. Patient ultimately required craniotomy for cerebral edema during his initial stay. He subsequently i mproved and was discharged to [facility] for rehabilitation. His rehabilitation went well and hi s parents described him being able to feed himself, speak, and participate with transfers. In early August, he was subsequently discharged home from [place] after rehabilitation. He was readmitted at [facility] in early August for bone flap replacement. This was complicated by an epidural malick hina which required evacuation. Postoperatively, he was felt to have seizure activity and was treate d with Dilantin and Keppra, both of which his family described as causing increased rigidity. EEG mo nitoring did not reveal evidence of seizures. He also developed a severe rash and lip swelling with Dilantin. Over the last 2 weeks, his parents note that he was having fever, which peaked in the 101 degree rang e. The etiology of this has not been well defined. Over the last week and a half, he has also had d ecreased oral intake. Slowly over this period, he has also had a decline in mental status with incre asing lethargy, although his family notes he was able to transfer when he was admitted to [facility] habilitation 2 days ago. He is not noted to have increased cough. He has been intermittently on oxy gen. No nausea, vomiting or diarrhea. No skin rash after Dilantin was discontinued. No indwelling Cantu catheter. Earlier today, an MRI of the brain was performed, which does not show any evidence o f postoperative fluid collection, brain abscess, subdural or epidural abscess. Encephalomalacia was noted. Chest x-ray was performed with question of retrocardiac infiltrate. Since his admission to [facility], he has had intermittent fevers in the 38 degree range. He has had persisting lethargy. He was chong sferred to [facility] earlier today for further evaluation. Given the above findings, I am now asked to assist in his ongoing management. PAST MEDICAL HISTORY: As above, otherwise unremarkable. PAST SURGICAL HISTORY: As above. CURRENT MEDICATIONS: Ativan as needed, Lopressor as needed, hydromorphone as needed; at rehab, he wa s also taking Lipitor 10 mg p.o. q.h.s., aspirin 81 mg p.o. daily, vitamin D 2000 units p.o. daily, P rozac 40 mg p.o. daily, Neurontin 600 mg p.o. t.i.d., Prevacid 30 mg p.o. daily, Keppra given on 08/25 x1, Ritalin 5 mg p.o. b.i.d., nystatin orally, warfarin 5 mg orally 5 times per week with 7.5 mg orally Friday and Friday. ALLERGIES: Dilantin as outlined above. SOCIAL HISTORY: The patient was a former smoker. FAMILY HISTORY: One other family member with clotting disorder, which is felt to be discretely diffe rent; parents without clotting disorder. REVIEW OF SYSTEMS: Outside of that noted in the HPI, the remainder of a 10-system review is either u nremarkable or unobtainable. PHYSICAL EXAMINATION: VITAL SIGNS: Temperature 38.3, heart rate 92, respiratory rate 18, blood pres sure 118/102. GENERAL: Patient is lethargic and does not respond to any of my commands, although he keeps his arm elevated when asked by his mother. He appears nontoxic. HEENT: There is no scleral icterus, conjunctival injection, or conjunctival petechiae. The patient will not open his mouth for examination. There are no lesions on his lips. There is no tenderness over the frontal, maxillary o r mastoid area. NECK: There is stiffness present with increased muscular tone, no adenopathy or thy romegaly. CHEST: Clear to auscultation anterolaterally. The respiratory effort is normal. CARDIOV ASCULAR: Regular rate and rhythm without murmurs, gallops, or rubs. ABDOMEN: Soft, nontender, nond istended. There is no palpable organomegaly. Bowel sounds are present. MUSCULOSKELETAL: There is no cyanosis, clubbing, or edema. SKIN: No rashes are present. There are no stigmata of endocarditi s. NEUROLOGIC: Patient is lethargic as outlined above. Right-sided hemiparesis is present. He is able to keep his left arm lifted when his mother asked. He has increased muscle tone throughout on t he left. LYMPHATICS: No cervical or supraclavicular nodes noted. LABORATORY DATA: White blood cell count 6.9, hematocrit 32.1, platelets 473, neutrophils 64%, lympho cytes 26%. Serum creatinine 0.8, bicarbonate 26, bilirubin 0.4, AST 36, ALT 71, alkaline phosphatase 99, procalcitonin 0.05, INR 2.36. Urinalysis shows 50-182 red blood cells with 1-3 white blood cell s. Blood cultures x3 sets are pending. Respiratory pathogen panel shows no organisms. MRI as outli desmond above. IMPRESSION: Low-grade temperature with altered mental status after neurosurgical procedures: The pa tient now with fever over the last 2 weeks and has increased lethargy. MRI does not show findings to suggest postoperative epidural/subdural/brain abscess. Given the patient's persistent symptomatolog y, I think lumbar puncture is warranted to ensure there is no evidence of meningitis despite normal p rocalcitonin level. Chest x-ray with consideration for retrocardiac infiltrate, although patient wit h no discrete symptoms of pneumonia. Central fever consideration, although findings are remote from initial central nervous system injury. Potential autonomic dysregulation is a consideration. RECOMMENDATIONS: 1. Agree with plans for observation off antibiotics. 2. Agree with plans for lumbar puncture to assess for meningitis. 3. Follow chest x-ray and clinical findings over time. 4. Follow up blood cultures as available. Thank you for this consultation. We will continue to follow the patient with you. /[id number]/MODL
[2017-09-22] MEDS ORDERED: levETIRAcetam 500 MG in NS 100 ML IV SCH (04:00)
--- NOTE | 2017-09-22 16:32 | ASDISCHSUM ---
Discharge Information Plan Status:Acute Transfer Medically Cleared to Leave:09/21/2017 Discharge Date:09/21/2017 08:15 PM CM D/C Disposition:[facility] ADT D/C Disposition:[facility] Projected Discharge Date:09/21/2017 09:00 PM Transportation at D/C:ALS/BLS Discharge Delay Reason: Follow-Up Date:09/21/2017 09:00 PM Discharge Slot: Final Diagnosis:Acute encephalopathy, Hx large stroke, Dysphasia Placement Information Patient Contact Information Contact Name:MARTA Relationship:Mother Address:[address] City:[place] Alternate Phone: [facility]/Zip Code:[place] [address] Email: Financial Information Financial Class:HMO and PPO Plans Primary Plan Desc:[employer] Primary Plan Number:[id number] Secondary Plan Desc:[employer] [place] Secondary Plan Number:[id number] Assessment Information [facility] CM Progress Note CM Note CM Note Notes: 22 year old male with a hx of a large stroke in april requiring a crani, HTN, Dysphasia, spasticity, hypercoagulable state, bone flap replacement. He came from [facility] in-pT rehab due to increased somnolence. Hospitalist would like to transfer him to [facility]. Records copied and sent w/[facility]. Date Signed: 09/21/2017 05:25 PM Electronically Signed By:Oralia Hewitt LCSW Intervention Information
--- NOTE | 2017-09-22 16:32 | ASDISCHSUM ---
Discharge Information Plan Status:Acute Transfer Medically Cleared to Leave:09/21/2017 Discharge Date:09/21/2017 08:15 PM CM D/C Disposition:[facility] ADT D/C Disposition:[facility] Projected Discharge Date:09/21/2017 09:00 PM Transportation at D/C:ALS/BLS Discharge Delay Reason: Follow-Up Date:09/21/2017 09:00 PM Discharge Slot: Final Diagnosis:Acute encephalopathy, Hx large stroke, Dysphasia Placement Information Patient Contact Information Contact Name:MARTA Relationship:Mother Address:[address] City:[place] Alternate Phone: [facility]/Zip Code:[place] [address] Email: Financial Information Financial Class:HMO and PPO Plans Primary Plan Desc:[employer] Primary Plan Number:[id number] Secondary Plan Desc:[employer] [place] Secondary Plan Number:[id number] Assessment Information [facility] CM Progress Note CM Note CM Note Notes: 22 year old male with a hx of a large stroke in april requiring a crani, HTN, Dysphasia, spasticity, hypercoagulable state, bone flap replacement. He came from [facility] in-pT rehab due to increased somnolence. Hospitalist would like to transfer him to [facility]. Records copied and sent w/[facility]. Date Signed: 09/21/2017 05:25 PM Electronically Signed By:Oralia Hewitt LCSW Intervention Information
--- NOTE | 2017-09-22 16:32 | ASDISCHSUM ---
Discharge Information Plan Status:Acute Transfer Medically Cleared to Leave:09/21/2017 Discharge Date:09/21/2017 08:15 PM CM D/C Disposition:[facility] ADT D/C Disposition:[facility] Projected Discharge Date:09/21/2017 09:00 PM Transportation at D/C:ALS/BLS Discharge Delay Reason: Follow-Up Date:09/21/2017 09:00 PM Discharge Slot: Final Diagnosis:Acute encephalopathy, Hx large stroke, Dysphasia Placement Information Patient Contact Information Contact Name:MARTA Relationship:Mother Address:[address] City:[place] Alternate Phone: [facility]/Zip Code:[place] [address] Email: Financial Information Financial Class:HMO and PPO Plans Primary Plan Desc:[employer] Primary Plan Number:[id number] Secondary Plan Desc:[employer] [place] Secondary Plan Number:[id number] Assessment Information [facility] CM Progress Note CM Note CM Note Notes: 22 year old male with a hx of a large stroke in april requiring a crani, HTN, Dysphasia, spasticity, hypercoagulable state, bone flap replacement. He came from [facility] in-pT rehab due to increased somnolence. Hospitalist would like to transfer him to [facility]. Records copied and sent w/[facility]. Date Signed: 09/21/2017 05:25 PM Electronically Signed By:Oralia Hewitt LCSW Intervention Information
== END 2017-09-21 20:15 | disposition short-term general hospital (02) | DRG 864 ==
LOC: PREOBSVTOIN 12:53 → F3N 12:53 → F2N 15:02
PROVIDERS: ADMIT Internal Medicine; ATTEND Internal Medicine
CPT/HCPCS: 84481-90; A9585; J1953; J3430